=== PATIENT | female | born 1930 | race Caucasian/White ===

== ENCOUNTER 2018-10-10 19:08 | Emergency (ER) | payer MEDICARE ==
[~2018-10-10] VITALS: Ht 165.1 cm; Wt 68.5 kg
[~2018-10-10 19:08] MED LIST: [UNRECOGNIZED DRUG - REMARK]; [UNRECOGNIZED DRUG - REMARK]
[2018-10-10] MEDS ORDERED: CLONIDINE HCL 0.1 MG TABLET ONE (19:55)
[2018-10-10 20:00] VITALS: BP 181/98
[2018-10-10] MEDS ORDERED: CLONIDINE HCL 0.1 MG TABLET PO ONE (20:00)
== END 2018-10-10 20:39 | disposition home or self-care (01) ==
LOC: ER 19:09
DX: I10 Essential (primary) hypertension (principal); Z76.0 Encounter for issue of repeat prescription; Z60.2 Problems related to living alone
CPT/HCPCS: 99283; A4606